=== PATIENT | male | born 1985 | race Caucasian/White ===

== ENCOUNTER 2016-06-15 | Emergency (ER) | payer MEDICAID | END 2016-06-15 16:59 | disposition home or self-care (01) | DX: K02.9 Dental caries, unspecified (principal) ==

== ENCOUNTER 2016-08-15 13:22 | Emergency (ER) | payer MEDICAID ==
[2016-08-15] MEDS ORDERED: PENICILLIN VK 250 MG TABLET PO STA (13:35)
[2016-08-15] MEDS ORDERED: PENICILLIN VK 250 MG TABLET PO ONE (13:39)
== END 2016-08-15 13:43 | disposition home or self-care (01) ==
DX: K02.9 Dental caries, unspecified (principal); F17.200 Nicotine dependence, unspecified, uncomplicated
CPT/HCPCS: 99283; A9270

== ENCOUNTER 2016-11-15 17:00 | Emergency (ER) | payer MEDICAID ==
[2016-11-15 17:11] VITALS: BP 150/86
--- NOTE | 2016-11-15 17:19 | ED Physician Documentation ---
PD HPI HEENT - Stated complaint Stated Complaint: LT UPPER TOOTH ACHE - Chief complaint Chief Complaint: Heent - History obtained from History obtained from: Patient - History of Present Illness Timing - onset: Today Timing - details: Waxing and waning - Additional information Additional information: The patient is a 31-year-old male who presents with toothache in a left upper molar. The aching started this morning and has persisted throughout the day. He denies headache, earache, sore throat, or fever. He has a history of similar symptoms in the past with dental caries. Review of Systems Constitutional: denies: Fever Eyes: denies: Irritation Ears: denies: Ear pain Nose: denies: Congestion Throat: reports: Dental pain / toothache. denies: Sore throat Respiratory: denies: Dyspnea GI: denies: Nausea, Vomiting Skin: denies: Rash Musculoskeletal: denies: Neck pain Neurologic: denies: Headache PD PAST MEDICAL HISTORY - Past Medical History Cardiovascular: None Respiratory: None Neuro: Headache/migraine Endocrine/Autoimmune: None - Past Surgical History Past Surgical History: No - Present Medications Home Medications: Ambulatory Orders Medication Instructions Recorded Confirmed HYDROcod/ACETAM 5/325 [Vicodin 1 - 2 ea PO Q6H PRN #20 tablet 11/15/16 5/325] Penicillin V Potassium 500 mg PO QID #40 tablet 11/15/16 - Allergies Allergies/Adverse Reactions: Allergies Allergy/AdvReac Type Severity Reaction Status Date / Time No Known Drug Allergies Allergy Verified 11/15/16 17:11 - Social History Does the pt smoke?: Yes Smoking Status: Current every day smoker Does the pt drink ETOH?: No Does the pt have substance abuse?: No - Immunizations Immunizations are current?: Yes PD ED PE NORMAL - Vitals Vital signs reviewed: Yes (Initially hypertensive.) - General General: Alert and oriented X 3, Well developed/nourished - HEENT HEENT: Atraumatic, PERRL, EOMI, Ears normal, Pharynx benign, Other (Widespread severe dental caries, with teeth eroded nearly to the gumline. There is tenderness to palpation of the left upper rear most molar. There is no gingival swelling, and no facial swelling.) - Neck Neck: Supple, no meningeal sign, No adenopathy - Cardiac Cardiac: RRR, No murmur - Respiratory Respiratory: No respiratory distress, Clear bilaterally - Derm Derm: No rash - Neuro Neuro: Alert and oriented X 3, Normal speech Results - Vitals Vitals: Oxygen O2 Source Room air PD MEDICAL DECISION MAKING - ED course Complexity details: considered differential, d/w patient ED course: The patient's presentation is significant for dental pain associated with extreme dental caries, with possible apical abscess. There is no clinical evidence of peritonsillar abscess or facial abscess. I discussed with him antibiotic treatment and dental follow-up, as well as potentially worrisome signs or symptoms that should prompt reevaluation in the emergency department. He is being discharged with prescriptions for penicillin and for Vicodin, 20 tablets. Departure - Departure Disposition: Home, Self Care Clinical Impression: Pain due to dental caries Condition: Stable Instructions: ED Tooth Pain Follow-Up: Verna Camp MD [Physician No Access] - Prescriptions: HYDROcod/ACETAM 5/325 [Vicodin 5/325] 1 - 2 ea PO Q6H PRN #20 tablet PRN Reason: Pain Penicillin V Potassium 500 mg PO QID #40 tablet Comments: 1. Take penicillin 4 times daily as prescribed. 2. You can use Vicodin as prescribed if needed for pain. 3. Follow-up with a dentist as soon as possible. Call to schedule appointment. 4. Return to the emergency department if you develop increasing dental pain, facial swelling, or otherwise worsening symptoms. 5. Your blood pressure today in the emergency department was slightly elevated. It is common for people to have high blood pressure when presenting to the emergency department, and it does not indicate that you necessarily have ongoing hypertension or need to be on antihypertensive medication. However it is advisable that you follow up with your primary physician within 2 weeks to have your blood pressure rechecked. Discharge Date/Time: 11/15/16 17:20
== END 2016-11-15 17:20 | disposition home or self-care (01) ==
LOC: ED 17:00
DX: K02.9 Dental caries, unspecified (principal); K08.89 Other specified disorders of teeth and supporting structures; R03.0 Elevated blood-pressure reading, without diagnosis of hypertension
CPT/HCPCS: 99283

== ENCOUNTER 2016-11-25 20:27 | Emergency (ER) | payer MEDICAID ==
[2016-11-25 20:31] VITALS: BP 162/83
--- NOTE | 2016-11-25 21:05 | ED Physician Documentation ---
PD HPI HEENT - Stated complaint Stated Complaint: TOOTH PX - Chief complaint Chief Complaint: Heent - History obtained from History obtained from: Patient - History of Present Illness Timing - duration: Days Timing - details: Gradual onset, Still present, Waxing and waning Location: Tooth (left upper) Associated symptoms: Facial swelling (mild). No: Fever Recently seen: Emergency Dept (Has appt with [facility] dental in 2 weeks) Review of Systems Constitutional: denies: Fever, Chills Throat: denies: Sore throat PD PAST MEDICAL HISTORY - Past Medical History Cardiovascular: None Respiratory: None Neuro: Headache/migraine Endocrine/Autoimmune: None - Past Surgical History Past Surgical History: No - Present Medications Home Medications: Ambulatory Orders Medication Instructions Recorded Confirmed HYDROcod/ACETAM 5/325 [Vicodin 1 - 2 ea PO Q6H PRN #20 tablet 11/15/16 11/25/16 5/325] Clindamycin [Cleocin] 150 mg PO TID #20 capsule 11/25/16 Hydrocodone/Acetaminophen [[place] 1 each PO Q6H PRN #20 tablet 11/25/16 5-325 Tablet] Naproxen 375 mg PO BID #20 tablet 11/25/16 - Allergies Allergies/Adverse Reactions: Allergies Allergy/AdvReac Type Severity Reaction Status Date / Time No Known Drug Allergies Allergy Verified 11/25/16 20:31 - Social History Does the pt smoke?: Yes Smoking Status: Current every day smoker Does the pt drink ETOH?: No Does the pt have substance abuse?: No - Immunizations Immunizations are current?: Yes PD ED PE NORMAL - Vitals Vital signs reviewed: Yes - General General: Alert and oriented X 3, No acute distress, Well developed/nourished - HEENT HEENT: Moist mucous membranes. No: Dentition benign (left upper teeth decayed to gumline, with some gum swelling but no fluctuance. ) - Neck Neck: Supple, no meningeal sign, No adenopathy Results - Vitals Vitals: Vital Signs - 24 hr 11/25/16 20:29 Temperature 36.3 C L Heart Rate 97 Respiratory 18 Rate Blood Pressure 162/83 H O2 Saturation 100 Oxygen O2 Source Room air PD MEDICAL DECISION MAKING - ED course Complexity details: reviewed old records (prior ED visits for the same, but he has had dental extractions on the teeth previously bothered him (right upper and lower). He is getting dental work done at [facility] will do it (he says they will only take out up to 3 at a time). So he is showing good lisa on getting definitive care. ), considered differential, d/w patient Departure - Departure Disposition: 01 Home, Self Care Clinical Impression: Pain due to dental caries Condition: Stable Record reviewed to determine appropriate education?: Yes Instructions: ED Tooth Pain Follow-Up: Verna Camp MD [Primary Care Provider] - Prescriptions: Clindamycin [Cleocin] 150 mg PO TID #20 capsule Naproxen 375 mg PO BID #20 tablet Hydrocodone/Acetaminophen [[place] 5-325 Tablet] 1 each PO Q6H PRN #20 tablet PRN Reason: Pain Comments: Drink lots of fluids. Naproxen twice daily. Clindamycin antibiotic as directed. Add Tylenol or hydrocodone as needed for pain. Follow up [facility] dental in 2 weeks as planned. Discharge Date/Time: 11/25/16 21:21
[2016-11-25] MEDS ORDERED: NAPROXEN 250 MG TABLET PO STA (21:11)
[2016-11-25] MEDS ORDERED: CLINDAMYCIN 150 MG CAPSULE PO STA (21:11)
[2016-11-25] MEDS ORDERED: HYDROcod/ACETAM 5/325 MG TABLET PO STA (21:11)
[2016-11-25] MEDS ORDERED: HYDROcod/ACETAM 5/325 MG TABLET ONE (21:19)
[2016-11-25] MEDS ORDERED: CLINDAMYCIN 150 MG CAPSULE PO ONE (21:19)
[2016-11-25] MEDS ORDERED: NAPROXEN 250 MG TABLET PO ONE (21:19)
== END 2016-11-25 21:21 | disposition home or self-care (01) ==
LOC: ED 20:27
DX: K02.9 Dental caries, unspecified (principal); K08.89 Other specified disorders of teeth and supporting structures; F17.200 Nicotine dependence, unspecified, uncomplicated
CPT/HCPCS: 99283; A9270

== ENCOUNTER 2016-12-06 20:37 | Emergency (ER) | payer MEDICAID ==
[2016-12-06] MEDS ORDERED: PENICILLIN VK 250 MG TABLET PO STA (22:29)
[2016-12-06] MEDS ORDERED: PENICILLIN VK 250 MG TABLET PO ONE (22:32)
--- NOTE | 2016-12-06 22:34 | ED Physician Documentation ---
PD HPI HEENT - Stated complaint Stated Complaint: TOOTH PX - Chief complaint Chief Complaint: General - History obtained from History obtained from: Patient - History of Present Illness Timing - onset: Chronic Timing - duration: Years Timing - details: Gradual onset Pain level max: 8 Pain level now: 8 Location: Tooth (several teeth) Improves: Nothing Worsens: Swalllowing, Temperatures Associated symptoms: No: Fever, Congestion, Rhinorrhea, Trismus, Unable to swallow, Swollen nodes, Facial swelling Similar symptoms before: Diagnosis (dental caries) - Additional information Additional information: has appt on 12/25 with dental Review of Systems Constitutional: denies: Fever, Chills GI: denies: Vomiting, Diarrhea Skin: denies: Rash Musculoskeletal: denies: Neck pain, Back pain Neurologic: denies: Headache PD PAST MEDICAL HISTORY - Past Medical History Past Medical History: Yes Cardiovascular: None Respiratory: None Neuro: Headache/migraine Endocrine/Autoimmune: None GI: None : None HEENT: None Psych: None Musculoskeletal: None Derm: None - Past Surgical History Past Surgical History: No - Present Medications Home Medications: Ambulatory Orders Medication Instructions Recorded Confirmed HYDROcod/ACETAM 5/325 [Vicodin 1 - 2 ea PO Q6H PRN #20 tablet 11/15/16 11/25/16 5/325] Clindamycin [Cleocin] 150 mg PO TID #20 capsule 11/25/16 Hydrocodone/Acetaminophen [[place] 1 each PO Q6H PRN #20 tablet 11/25/16 5-325 Tablet] Naproxen 375 mg PO BID #20 tablet 11/25/16 Hydrocodone/Acetaminophen 1 - 2 each PO Q6H PRN #14 tablet 12/06/16 [Hydrocodon-Acetaminophen 5-325] Penicillin V Potassium 500 mg PO Q6HR #40 tablet 12/06/16 - Allergies Allergies/Adverse Reactions: Allergies Allergy/AdvReac Type Severity Reaction Status Date / Time No Known Drug Allergies Allergy Verified 12/06/16 21:24 - Social History Does the pt smoke?: Yes Smoking Status: Current every day smoker Does the pt drink ETOH?: No Does the pt have substance abuse?: No - Immunizations Immunizations are current?: Yes - POLST Patient has POLST: No PD ED PE NORMAL - Vitals Vital signs reviewed: Yes - General General: Alert and oriented X 3, No acute distress - HEENT HEENT: Other (poor dentition. multiple cavities. no drainable abscess. ) - Neck Neck: Supple, no meningeal sign - Cardiac Cardiac: RRR - Respiratory Respiratory: No respiratory distress, Clear bilaterally - Derm Derm: Warm and dry - Neuro Neuro: Alert and oriented X 3 Results - Vitals Vitals: Vital Signs - 24 hr 12/06/16 12/06/16 21:21 22:41 Temperature 326.6 C H Heart Rate 95 80 Respiratory 17 17 Rate Blood Pressure 149/88 H 135/80 H O2 Saturation 99 97 Oxygen O2 Source Room air PD MEDICAL DECISION MAKING - ED course Complexity details: reviewed old records, considered differential, d/w patient ED course: Patient with very poor dentition. Will place on antibiotics and pain medications for home. Has a dental appointment coming up at the [facility]. Patient counseled regarding signs and symptoms for which I believe and urgent re-evaluation would be necessary. Patient with good understanding of and agreement to plan and is comfortable going home at this time This document was made in part using voice recognition software. While efforts are made to proofread this document, sound alike and grammatical errors may occur. No facial cellulitis, no Samson's angina Departure - Departure Disposition: 01 Home, Self Care Clinical Impression: Dental caries Condition: Good Instructions: ED Cavity Dental Follow-Up: Verna Camp MD [Primary Care Provider] - Within 1 week Prescriptions: Penicillin V Potassium 500 mg PO Q6HR #40 tablet Hydrocodone/Acetaminophen [Hydrocodon-Acetaminophen 5-325] 1 - 2 each PO Q6H PRN #14 tablet PRN Reason: pain Comments: Return if you worsen. Take all antibiotics until gone. Do not drink alcohol or drive while on narcotic pain medicine. Note that many narcotic pain relievers also contain tylenol/acetaminophen. Please ensure that your total dose of acetaminophen from all sources does not exceed 3 grams (3000mg) per day. You may constipated on this medication, take a stool softener such as "Colace" twice a day while you are on it. Also recommend a [id number] laxative such as senna or MiraLAX any day that you do not have a bowel movement. If you received narcotic pain medication in the emergency department, do not drive or operate machinery for the next 24 hours. Discharge Date/Time: 12/06/16 22:42
[2016-12-06 22:42] VITALS: BP 135/80
[2016-12-06] MEDS ORDERED: HYDROcod/ACET 5/325 Prepack 6 PO ONE ×2 (22:48→22:49)
== END 2016-12-06 22:42 | disposition home or self-care (01) ==
LOC: ED 20:37
DX: K02.9 Dental caries, unspecified (principal); F17.200 Nicotine dependence, unspecified, uncomplicated
CPT/HCPCS: 99283; A9270

== ENCOUNTER 2016-12-09 16:45 | Emergency (ER) | payer MEDICAID ==
[2016-12-09 17:11] VITALS: BP 150/89
== END 2016-12-09 19:00 | disposition left against medical advice (07) ==
LOC: ED 16:45
DX: Z53.21 Procedure and treatment not carried out due to patient leaving prior to being seen by health care provider (principal)
CPT/HCPCS: 99281

== ENCOUNTER 2017-01-28 19:39 | Emergency (ER) | payer OTHER, MEDICAID ==
[2017-01-28 19:49] VITALS: BP 159/96
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
[2017-01-28] MEDS ORDERED: HYDROcod/ACET 5/325 Prepack 6 PO STA (20:49)
[2017-01-28] MEDS ORDERED: CYCLOBENZAPRINE 10 MG Prepack 2 PO STA (20:50)
[2017-01-28] MEDS ORDERED: HYDROcod/ACET 5/325 Prepack 6 PO ONE (20:57)
[2017-01-28] MEDS ORDERED: CYCLOBENZAPRINE 10 MG Prepack 2 PO ONE (20:57)
== END 2017-01-28 21:05 | disposition home or self-care (01) ==
LOC: ED 19:39
DX: S39.012A Strain of muscle, fascia and tendon of lower back, initial encounter (principal); V43.92XA Unspecified car occupant injured in collision with other type car in traffic accident, initial encounter
CPT/HCPCS: 99283

== ENCOUNTER 2017-04-27 14:17 | Emergency (ER) | payer MEDICAID ==
[2017-04-27 14:29] VITALS: BP 140/83
--- NOTE | 2017-04-27 14:49 | ED Physician Documentation ---
PD HPI HEENT - Stated complaint Stated Complaint: TOOTH PX - Chief complaint Chief Complaint: Heent - History obtained from History obtained from: Patient - History of Present Illness Timing - onset: How many days ago (4) Timing - duration: Days (4) Timing - details: Gradual onset, Still present Location: Tooth Improves: Medication Worsens: Temperatures Associated symptoms: Facial swelling, Headache Similar symptoms before: Diagnosis (bad teeth) Recently seen: Not recently seen - Additional information Additional information: 32-year-old male has a number of bad teeth on the left upper side that have been bothering him since December of this year. He has been seen at [place] and referred to the [facility] he has been to the [facility] and they will not be able to take him until the beginning of the year. He has multiple carious teeth that are broken at the root and he will need multiple extractions. Today he has pain from a specific tooth and swelling and pain in his face. Review of Systems Constitutional: denies: Fever Eyes: denies: Loss of vision Ears: denies: Ear pain Nose: reports: Congestion Throat: reports: Dental pain / toothache. denies: Sore throat Cardiac: denies: Chest pain / pressure Respiratory: denies: Dyspnea, Cough GI: denies: Vomiting PD PAST MEDICAL HISTORY - Past Medical History Past Medical History: Yes Cardiovascular: None Respiratory: None Neuro: Headache/migraine Endocrine/Autoimmune: None GI: None : None HEENT: None Psych: None Musculoskeletal: None Derm: None - Past Surgical History Past Surgical History: No - Present Medications Home Medications: Ambulatory Orders Medication Instructions Recorded Confirmed Amoxicillin 875 mg PO BID #20 tablet 04/27/17 HYDROcod/ACETAM 5/325 [[place] 5/325] 1 - 2 ea PO Q6H PRN #15 tablet 04/27/17 Omeprazole [PriLOSEC] 1 cap PO DAILY 04/27/17 04/27/17 - Allergies Allergies/Adverse Reactions: Allergies Allergy/AdvReac Type Severity Reaction Status Date / Time No Known Drug Allergies Allergy Verified 04/27/17 14:30 - Social History Does the pt smoke?: Yes Smoking Status: Current every day smoker Does the pt drink ETOH?: No Does the pt have substance abuse?: No - Immunizations Immunizations are current?: Yes - POLST Patient has POLST: No PD ED PE NORMAL - Vitals Vital signs reviewed: Yes (Tachycardic and hypertensive) - General General: Alert and oriented X 3, Well developed/nourished, Other (32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.) - HEENT HEENT: Atraumatic, PERRL, EOMI, Ears normal (The patient's ear canals point up.) , Other (There are multiple carious teeth and multiple teeth broken off at the root on the left upper jaw.) - Neck Neck: Supple, no meningeal sign, No bony TTP - Cardiac Cardiac: RRR, No murmur - Respiratory Respiratory: No respiratory distress, Clear bilaterally - Derm Derm: Normal color, Warm and dry, No rash - Extremities Extremities: No deformity, No edema - Neuro Neuro: No motor deficit, No sensory deficit Eye Opening: Spontaneous Motor: Obeys Commands Verbal: Oriented GCS Score: 15 - Psych Psych: Normal mood Results - Vitals Vitals: Vital Signs - 24 hr 04/27/17 14:26 Temperature 36.5 C Heart Rate 103 H Respiratory 16 Rate Blood Pressure 140/83 H O2 Saturation 100 Oxygen O2 Source Room air PD MEDICAL DECISION MAKING - ED course Complexity details: considered differential, d/w patient ED course: 32-year-old male with multiple bad teeth appears to have a specific tooth bothering him right now and he has had experienced previously with taking antibiotics and having this improved. He will not be able to be seen until May for extractions. We will place him on some amoxicillin. We will provide him with a small amount of pain medication. Departure - Departure Disposition: 01 Home, Self Care Clinical Impression: Pain due to dental caries Instructions: ED Tooth Pain Follow-Up: Verna Camp MD [Primary Care Provider] - Prescriptions: Amoxicillin 875 mg PO BID #20 tablet HYDROcod/ACETAM 5/325 [[place] 5/325] 1 - 2 ea PO Q6H PRN #15 tablet PRN Reason: Pain
== END 2017-04-27 15:05 | disposition home or self-care (01) ==
LOC: ED 14:17
DX: K02.9 Dental caries, unspecified (principal); F17.200 Nicotine dependence, unspecified, uncomplicated
CPT/HCPCS: 99283

== ENCOUNTER 2017-06-15 17:30 | Emergency (ER) | payer MEDICAID ==
[2017-06-15] MEDS ORDERED: cephALEXin 250 MG CAPSULE PO STA (18:53)
[2017-06-15] MEDS ORDERED: SULFAMETH/TRIMETH DS 800/160 MG TABLET PO STA (18:53)
--- NOTE | 2017-06-15 18:55 | ED Physician Documentation ---
History of Present Illness - Stated complaint Stated Complaint: LEFT POINTY FINGER SWELLING - Chief complaint Chief Complaint: Laceration - History obtained from History obtained from: Patient - History of Present Illness Timing: How many days ago (3) Pain level max: 3 Pain level now: 2 Improved by: nothing Worsened by: palpation - Additonal information Additional information: Patient is left handed. L index finger abrasion a few days ago, now swelling, redness to the finger. Td was 8 months ago. Review of Systems Constitutional: denies: Fever, Chills Skin: denies: Rash PD PAST MEDICAL HISTORY - Past Medical History Cardiovascular: None Respiratory: None Neuro: Headache/migraine Endocrine/Autoimmune: None GI: None : None HEENT: None Psych: None Musculoskeletal: None Derm: None - Past Surgical History Past Surgical History: No - Present Medications Home Medications: Ambulatory Orders Medication Instructions Recorded Confirmed Amoxicillin 875 mg PO BID #20 tablet 04/27/17 HYDROcod/ACETAM 5/325 [[place] 5/325] 1 - 2 ea PO Q6H PRN #15 tablet 04/27/17 Omeprazole [PriLOSEC] 1 cap PO DAILY 04/27/17 04/27/17 Cephalexin [Keflex] 500 mg PO Q6H #28 capsule 06/15/17 Sulfamethox/Trimeth 800/160 1 each PO BID #14 tablet 06/15/17 [Bactrim Ds 800/160] - Allergies Allergies/Adverse Reactions: Allergies Allergy/AdvReac Type Severity Reaction Status Date / Time No Known Drug Allergies Allergy Verified 04/27/17 14:30 - Social History Does the pt smoke?: Yes Smoking Status: Current every day smoker Does the pt drink ETOH?: No Does the pt have substance abuse?: No - Immunizations Immunizations are current?: Yes - POLST Patient has POLST: No PD ED PE NORMAL - Vitals Vital signs reviewed: Yes - General General: Alert and oriented X 3, No acute distress - Derm Derm: Warm and dry - Extremities Extremities: Other (L hand - mild swelling and erythema to dorsal aspect of the distal phalanx of the index finger near the DIP joint. mild swelling. no tenderness along the tendons of the palmar aspect. no lymphangitis. ) - Neuro Neuro: Alert and oriented X 3 Results - Vitals Vitals: Vital Signs - 24 hr 06/15/17 06/15/17 17:43 18:56 Temperature 36.5 C 36.5 C Heart Rate 93 85 Respiratory 18 18 Rate Blood Pressure 153/96 H 147/104 H O2 Saturation 96 98 Oxygen O2 Source Room air - Labs Labs: Microbiology 06/15/17 18:45 Wound Culture - Preliminary Abscess PD MEDICAL DECISION MAKING - ED course Complexity details: considered differential, d/w patient ED course: Patient is a 32-year-old gentleman who presents to the emergency department with what appears to be a mild cellulitis to the left index finger. There was a small abscess that was unroofed with a 27-gauge needle, small amount of purulent material obtained and sent for wound culture. Will place on Bactrim and Keflex. No tenosynovitis. No lymphangitic spread. No deep space infection in the hand. Able to flex and extend the digit fully. Patient counseled regarding signs and symptoms for which I believe and urgent re- evaluation would be necessary. Patient with good understanding of and agreement to plan and is comfortable going home at this time This document was made in part using voice recognition software. While efforts are made to proofread this document, sound alike and grammatical errors may occur. Last tetanus shot was 8 months ago Departure - Departure Disposition: 01 Home, Self Care Clinical Impression: Cellulitis Qualifiers: Site of cellulitis: extremity Site of cellulitis of extremity: finger Laterality: left Qualified Code(s): L03.012 - Cellulitis of left finger Condition: Good Instructions: ED Infec Skin Cellulitis Follow-Up: Verna Camp MD [Primary Care Provider] - Within 3 Days (for wound check) Prescriptions: Cephalexin [Keflex] 500 mg PO Q6H #28 capsule Sulfamethox/Trimeth 800/160 [Bactrim Ds 800/160] 1 each PO BID #14 tablet Comments: Take all antibiotics until gone. Return if you worsen. This should start to improve over the next 24 hours. Discharge Date/Time: 06/15/17 19:15
[2017-06-15 18:59] VITALS: BP 147/104
== END 2017-06-15 19:15 | disposition home or self-care (01) ==
LOC: ED 17:30
DX: L03.012 Cellulitis of left finger (principal)
CPT/HCPCS: 87070; 87181; 87205; 99282; 99283; A9270

== ENCOUNTER 2017-08-04 19:42 | Emergency (ER) | payer MEDICAID ==
[2017-08-04] MEDS ORDERED: HYDROcod/ACET 5/325 Prepack 4 PO STA (21:30)
--- NOTE | 2017-08-04 21:32 | ED Physician Documentation ---
PD HPI LOWER EXT INJURY - Stated complaint Stated Complaint: L LEG PAIN - Chief complaint Chief Complaint: Ext Problem - History obtained from History obtained from: Patient - History of Present Illness PD HPI LOW EXT INJURY LOCATION: Left, Lower leg (He was walking on flat ground today and felt a pop in his calf and now has moderate pain when walking and mild pain at rest. No other injuries. No recent antibiotics.) Review of Systems Constitutional: reports: Reviewed and negative Cardiac: reports: Reviewed and negative Respiratory: reports: Reviewed and negative PD PAST MEDICAL HISTORY - Past Medical History Past Medical History: Yes Cardiovascular: None Respiratory: None Neuro: Headache/migraine Endocrine/Autoimmune: None GI: GERD : None HEENT: None Psych: None Musculoskeletal: None Derm: None - Past Surgical History Past Surgical History: No - Present Medications Home Medications: Ambulatory Orders Medication Instructions Recorded Confirmed Omeprazole [PriLOSEC] 1 cap PO DAILY 04/27/17 04/27/17 HYDROcod/ACETAM 5/325 [[place] 5/325] 1 - 2 ea PO Q6H PRN #7 tablet 08/04/17 Ibuprofen [Motrin] 800 mg PO Q8H PRN #30 tablet 08/04/17 - Allergies Allergies/Adverse Reactions: Allergies Allergy/AdvReac Type Severity Reaction Status Date / Time No Known Drug Allergies Allergy Verified 08/04/17 19:55 - Social History Does the pt smoke?: Yes Smoking Status: Current every day smoker Does the pt drink ETOH?: No Does the pt have substance abuse?: No - Immunizations Immunizations are current?: Yes - POLST Patient has POLST: No PD ED PE NORMAL - Vitals Vital signs reviewed: Yes - General General: Alert and oriented X 3, No acute distress - Extremities Extremities: Other (Left calf is mildly tender but not tense. He has pain with Achilles function but Achilles function is normal.) - Neuro Neuro: Alert and oriented X 3, Normal speech Results - Vitals Vitals: Vital Signs - 24 hr 08/04/17 19:53 Temperature 36.4 C L Heart Rate 97 Respiratory 18 Rate Blood Pressure 145/91 H O2 Saturation 100 Oxygen O2 Source Room air PD MEDICAL DECISION MAKING - ED course ED course: He has a partial calf rupture clinically. This history is inconsistent with DVT. There is no evidence of compartment syndrome. Departure - Departure Disposition: 01 Home, Self Care Clinical Impression: Strain of calf muscle Qualifiers: Encounter type: initial encounter Laterality: left Qualified Code(s): S86.812A - Strain of other muscle(s) and tendon(s) at lower leg level, left leg, initial encounter Condition: Good Record reviewed to determine appropriate education?: Yes Instructions: ED Strain Muscle Ext Prescriptions: HYDROcod/ACETAM 5/325 [[place] 5/325] 1 - 2 ea PO Q6H PRN #7 tablet PRN Reason: Pain Ibuprofen [Motrin] 800 mg PO Q8H PRN #30 tablet PRN Reason: PAIN &/OR FEVER Comments: Call your doctor to arrange a follow-up appointment, make the next available appointment. In the interim, return anytime if worse or if new symptoms develop. Do not drink or drive while taking narcotic pain medication. Note that many narcotic pain relievers also contain Tylenol/acetaminophen. Please ensure that your total dose of acetaminophen from all sources does not exceed 3 g (3000 mg) per day. You may get constipated while on this medication. Take a stool softener such as Colace twice a day while you are on it. Also add an [id number] laxative such as senna or MiraLAX on any day that you do not have a bowel movement. If you received a narcotic pain medication or sedative while in the emergency department, do not drive for the next 24 hours. Your blood pressure was elevated today on check into the emergency department. This does not mean that you have hypertension, it is a common phenomenon to come to the emergency department and have elevated blood pressure. I recommend that you see your primary care physician within the week to have it rechecked when you are feeling better. Forms: Activity restrictions
[2017-08-04 21:49] VITALS: BP 141/89
== END 2017-08-04 21:47 | disposition home or self-care (01) ==
LOC: ED 19:42
DX: S86.812A Strain of other muscle(s) and tendon(s) at lower leg level, left leg, initial encounter (principal); X58.XXXA Exposure to other specified factors, initial encounter; Y93.01 Activity, walking, marching and hiking; F17.200 Nicotine dependence, unspecified, uncomplicated
CPT/HCPCS: 99283

== ENCOUNTER 2017-11-06 17:03 | Emergency (ER) | payer MEDICAID ==
[2017-11-06 17:10] VITALS: BP 133/89
[2017-11-06] MEDS ORDERED: PENICILLIN VK 250 MG TABLET PO STA (17:15)
[2017-11-06] MEDS ORDERED: IBUPROFEN 800 MG TABLET PO STA (17:16)
--- NOTE | 2017-11-06 17:19 | ED Physician Documentation ---
PD HPI HEENT - Stated complaint Stated Complaint: TOOTH PX - Chief complaint Chief Complaint: General - History obtained from History obtained from: Patient - History of Present Illness Timing - onset: Today Timing - details: Still present Associated symptoms: No: Fever, Facial swelling, Headache - Additional information Additional information: The patient is a 32-year-old male with a history of dental caries, who presents with toothache of his right upper incisor. The pain started today. He denies fever or facial swelling. He has history of similar pain intermittently in the past. He denies the use of methamphetamine. Review of Systems Constitutional: denies: Fever Eyes: denies: Irritation Ears: denies: Ear pain Nose: denies: Congestion Throat: reports: Dental pain / toothache. denies: Sore throat Respiratory: denies: Dyspnea GI: denies: Nausea, Vomiting Skin: denies: Rash Musculoskeletal: denies: Neck pain Neurologic: denies: Headache PD PAST MEDICAL HISTORY - Past Medical History Cardiovascular: None Respiratory: None Endocrine/Autoimmune: None GI: GERD : None HEENT: None Psych: None Musculoskeletal: None Derm: None - Past Surgical History Past Surgical History: No - Present Medications Home Medications: Ambulatory Orders Medication Instructions Recorded Confirmed Omeprazole [PriLOSEC] 1 cap PO DAILY 04/27/17 04/27/17 Ibuprofen [Motrin] 800 mg PO Q8H PRN #30 tablet 08/04/17 HYDROcod/ACETAM 5/325 [[place] 5/325] 1 - 2 ea PO Q6H PRN #20 tablet 11/06/17 Penicillin V Potassium 500 mg PO QID #40 tablet 11/06/17 - Allergies Allergies/Adverse Reactions: Allergies Allergy/AdvReac Type Severity Reaction Status Date / Time No Known Drug Allergies Allergy Verified 08/04/17 19:55 - Social History Does the pt smoke?: Yes Smoking Status: Current every day smoker Does the pt drink ETOH?: No Does the pt have substance abuse?: No - Immunizations Immunizations are current?: Yes - POLST Patient has POLST: No PD ED PE NORMAL - Vitals Vital signs reviewed: Yes (Borderline hypertension.) - General General: Alert and oriented X 3, Well developed/nourished - HEENT HEENT: Atraumatic, EOMI, Ears normal, Pharynx benign, Other (There is widespread dental decay, with many teeth missing. The right upper medial incisor is decayed into the pulp, and is tender to palpation. There is no associated gingival or facial swelling.) - Neck Neck: Supple, no meningeal sign, No adenopathy - Cardiac Cardiac: RRR - Respiratory Respiratory: No respiratory distress, Clear bilaterally - Derm Derm: No rash - Neuro Neuro: Alert and oriented X 3, Normal speech Results - Vitals Vitals: Oxygen O2 Source Room air PD MEDICAL DECISION MAKING - ED course Complexity details: considered differential, d/w patient ED course: The patient's presentation is significant for dental pain due to extensive dental caries in the right upper incisor. There is no clinical evidence of a drainable abscess. Treatment in the emergency department included administration of penicillin and ibuprofen. He is being discharged with prescriptions for penicillin and for Vicodin, 20 tablets. I discussed with him the importance of dental follow-up, as well as potentially worrisome signs or symptoms that should prompt reevaluation in the emergency department. - Sepsis Event Vital Signs: Oxygen O2 Source Room air Departure - Departure Disposition: 01 Home, Self Care Clinical Impression: Pain due to dental caries Condition: Stable Instructions: ED Tooth Pain Follow-Up: Verna Camp MD [Primary Care Provider] - Prescriptions: HYDROcod/ACETAM 5/325 [[place] 5/325] 1 - 2 ea PO Q6H PRN #20 tablet PRN Reason: Pain Penicillin V Potassium 500 mg PO QID #40 tablet Comments: Take penicillin 4 times daily as prescribed. He can use ibuprofen, up to 800 mg 3 times daily for its anti-inflammatory effect. You can use Vicodin as prescribed if needed for pain. Follow up with a dentist as soon as possible. Call to schedule appointment. Return to the emergency department if you develop increasing pain or facial swelling, or otherwise worsening symptoms. Discharge Date/Time: 11/06/17 17:38
== END 2017-11-06 17:38 | disposition home or self-care (01) ==
LOC: ED 17:03
DX: K02.9 Dental caries, unspecified (principal); K08.89 Other specified disorders of teeth and supporting structures; K21.9 Gastro-esophageal reflux disease without esophagitis; F17.200 Nicotine dependence, unspecified, uncomplicated
CPT/HCPCS: 99283; A9270

== ENCOUNTER 2017-12-27 19:59 | Emergency (ER) | payer MEDICAID ==
[2017-12-27 20:05] VITALS: BP 142/78
[2017-12-27] MEDS ORDERED: CLINDAMYCIN 150 MG CAPSULE PO STA (20:20)
[2017-12-27] MEDS ORDERED: HYDROcod/ACET 5/325 Prepack 4 PO STA (20:20)
--- NOTE | 2017-12-27 20:22 | ED Physician Documentation ---
PD HPI HEENT - Stated complaint Stated Complaint: TOOTHACHE - Chief complaint Chief Complaint: Heent - History obtained from History obtained from: Patient - History of Present Illness Timing - onset: Other (He has worsening diffuse dental pain, the worst one is a right maxillary incisor. He has been running fevers and does have an appointment with the dentist.) Review of Systems Constitutional: denies: Fever, Chills Nose: denies: Rhinorrhea / runny nose, Congestion Throat: reports: Dental pain / toothache. denies: Sore throat PD PAST MEDICAL HISTORY - Past Medical History Past Medical History: Yes Cardiovascular: None Respiratory: None Endocrine/Autoimmune: None GI: GERD : None HEENT: None Psych: None Musculoskeletal: None Derm: None - Past Surgical History Past Surgical History: No - Present Medications Home Medications: Ambulatory Orders Medication Instructions Recorded Confirmed Omeprazole [PriLOSEC] 1 cap PO DAILY 04/27/17 04/27/17 Clindamycin [Cleocin] 300 mg PO Q6H 10 Days capsule 12/27/17 HYDROcod/ACETAM 5/325 [[place] 5/325] 1 - 2 ea PO Q6H PRN #10 tablet 12/27/17 - Allergies Allergies/Adverse Reactions: Allergies Allergy/AdvReac Type Severity Reaction Status Date / Time No Known Drug Allergies Allergy Verified 12/27/17 20:04 - Social History Does the pt smoke?: Yes Smoking Status: Current every day smoker Does the pt drink ETOH?: No Does the pt have substance abuse?: No - Immunizations Immunizations are current?: Yes - POLST Patient has POLST: No PD ED PE NORMAL - Vitals Vital signs reviewed: Yes - General General: Alert and oriented X 3, No acute distress - HEENT HEENT: Other (He has generally terrible dentition, most of his teeth are rotted down to the gumline. There is no evidence of a severe active infection i.e. there is no trismus, sublingual edema, facial swelling or gingival swelling.) - Abdomen Abdomen: Non tender - Neuro Neuro: Alert and oriented X 3, Normal speech Results - Vitals Vitals: Vital Signs - 24 hr 12/27/17 20:01 Temperature 36.6 C Heart Rate 110 H Respiratory 18 Rate Blood Pressure 142/78 H O2 Saturation 97 Oxygen O2 Source Room air PD MEDICAL DECISION MAKING - Sepsis Event Vital Signs: Vital Signs - 24 hr 12/27/17 20:01 Temperature 36.6 C Heart Rate 110 H Respiratory 18 Rate Blood Pressure 142/78 H O2 Saturation 97 Oxygen O2 Source Room air Departure - Departure Disposition: 01 Home, Self Care Clinical Impression: Dental caries Condition: Good Record reviewed to determine appropriate education?: Yes Instructions: ED Tooth Pain Prescriptions: Clindamycin [Cleocin] 300 mg PO Q6H 10 Days capsule HYDROcod/ACETAM 5/325 [[place] 5/325] 1 - 2 ea PO Q6H PRN #10 tablet PRN Reason: Pain Comments: It is very important that you follow-up with a dentist. When it comes to dental problems like yours, the emergency department can only offer a short- term solution to your long-term problem. A couple of low cost options for dental care include: [facility] in [place], calls [phone] for an appointment Or [facility] in [place], call [phone] for an appointment. Your blood pressure was elevated today on check into the emergency department. This does not mean that you have hypertension, it is a common phenomenon to come to the emergency department and have elevated blood pressure. I recommend that you see your primary care physician within the week to have it rechecked when you are feeling better.
== END 2017-12-27 20:28 | disposition home or self-care (01) ==
LOC: ED 19:59
DX: K02.9 Dental caries, unspecified (principal); F17.200 Nicotine dependence, unspecified, uncomplicated; R03.0 Elevated blood-pressure reading, without diagnosis of hypertension
CPT/HCPCS: 99283; A9270

== ENCOUNTER 2018-02-11 18:08 | Emergency (ER) | payer MEDICAID ==
[2018-02-11 18:15] VITALS: BP 148/89
[2018-02-11] MEDS ORDERED: HYDROcod/ACETAM 5/325 MG TABLET PO STA (18:25)
[2018-02-11] MEDS ORDERED: PENICILLIN VK 250 MG TABLET PO STA (18:25)
--- NOTE | 2018-02-11 18:27 | ED Physician Documentation ---
History of Present Illness - Stated complaint Stated Complaint: TOOTH PX - Chief complaint Chief Complaint: Heent - History obtained from History obtained from: Patient - History of Present Illness Timing: Today Pain level max: 8 Pain level now: 8 Improved by: nothing Worsened by: eating - Additonal information Additional information: Patient is a 33-year-old male with chronic dental disease who started having increasing upper left-sided dental pain today at 3:30 in the morning. He has a referral for an oral surgeon in [place] but there is no appointment scheduled as of yet. Denies any fevers. No facial swelling. Has not been on recent antibiotics since his last visit here last month Review of Systems Constitutional: denies: Fever, Chills Respiratory: denies: Cough GI: denies: Vomiting PD PAST MEDICAL HISTORY - Past Medical History Cardiovascular: None Respiratory: None Endocrine/Autoimmune: None GI: GERD : None HEENT: None Psych: None Musculoskeletal: None Derm: None - Past Surgical History Past Surgical History: No - Present Medications Home Medications: Ambulatory Orders Medication Instructions Recorded Confirmed Omeprazole [PriLOSEC] 1 cap PO DAILY 04/27/17 04/27/17 Clindamycin [Cleocin] 300 mg PO Q6H 10 Days capsule 12/27/17 HYDROcod/ACETAM 5/325 [[place] 5/325] 1 - 2 ea PO Q6H PRN #10 tablet 12/27/17 Hydrocodone/Acetaminophen 1 - 2 each PO Q6H PRN #14 tablet 02/11/18 [Hydrocodon-Acetaminophen 5-325] Penicillin V Potassium 500 mg PO Q6HR #40 tablet 02/11/18 - Allergies Allergies/Adverse Reactions: Allergies Allergy/AdvReac Type Severity Reaction Status Date / Time No Known Drug Allergies Allergy Verified 02/11/18 18:15 - Social History Does the pt smoke?: Yes Smoking Status: Current every day smoker Does the pt drink ETOH?: No Does the pt have substance abuse?: No - Immunizations Immunizations are current?: Yes - POLST Patient has POLST: No PD ED PE NORMAL - Vitals Vital signs reviewed: Yes - General General: Alert and oriented X 3, No acute distress - HEENT HEENT: Moist mucous membranes, Other (Diffuse dental caries with multiple teeth that are broken and visibly rotting. No drainable abscess. No facial cellulitis. No Samson's angina. Normal phonation. No trismus) - Neck Neck: Supple, no meningeal sign, No adenopathy - Cardiac Cardiac: RRR - Respiratory Respiratory: No respiratory distress, Clear bilaterally - Derm Derm: Warm and dry - Neuro Neuro: Alert and oriented X 3 Results - Vitals Vitals: Vital Signs - 24 hr 02/11/18 18:13 Temperature 35.6 C L Heart Rate 101 H Respiratory 15 Rate Blood Pressure 148/89 H O2 Saturation 100 Oxygen O2 Source Room air PD MEDICAL DECISION MAKING - ED course Complexity details: considered differential, d/w patient ED course: Patient is a 33-year-old male with a long-standing history of dental disease being referred to an oral surgeon for tooth extraction. Will place on penicillin and prescribe a small amount of pain medication for home. We will have him follow-up with his doctor for further care. No evidence of abscess or Samson's angina. Patient counseled regarding signs and symptoms for which I believe and urgent re-evaluation would be necessary. Patient with good understanding of and agreement to plan and is comfortable going home at this time This document was made in part using voice recognition software. While efforts are made to proofread this document, sound alike and grammatical errors may occur. - Sepsis Event Vital Signs: Vital Signs - 24 hr 02/11/18 18:13 Temperature 35.6 C L Heart Rate 101 H Respiratory 15 Rate Blood Pressure 148/89 H O2 Saturation 100 Oxygen O2 Source Room air Departure - Departure Disposition: 01 Home, Self Care Clinical Impression: Dental caries, Pain due to dental caries Condition: Good Instructions: ED Tooth Pain Follow-Up: your,doctor in 1 week [Other] Prescriptions: Penicillin V Potassium 500 mg PO Q6HR #40 tablet Hydrocodone/Acetaminophen [Hydrocodon-Acetaminophen 5-325] 1 - 2 each PO Q6H PRN #14 tablet PRN Reason: pain Comments: Take all antibiotics until gone. Return if you worsen. Make sure to follow-up closely with your dentist and oral surgeon. Do not drink alcohol or drive while on narcotic pain medicine. Note that many narcotic pain relievers also contain tylenol/acetaminophen. Please ensure that your total dose of acetaminophen from all sources does not exceed 3 grams (3000mg) per day. You may constipated on this medication, take a stool softener such as "Colace" twice a day while you are on it. Also recommend a cemv-lwx-oybjvrx laxative such as senna or MiraLAX any day that you do not have a bowel movement. If you received narcotic pain medication in the emergency department, do not drive or operate machinery for the next 24 hours.
== END 2018-02-11 18:43 | disposition home or self-care (01) ==
LOC: ED 18:08
DX: K02.9 Dental caries, unspecified (principal); K08.89 Other specified disorders of teeth and supporting structures; F17.200 Nicotine dependence, unspecified, uncomplicated
CPT/HCPCS: 99283; A9270

== ENCOUNTER 2018-03-10 17:28 | Emergency (ER) | payer MEDICAID ==
[2018-03-10 17:32] VITALS: BP 154/93
--- NOTE | 2018-03-10 17:41 | ED Physician Documentation ---
PD HPI BACK INJURY - Stated complaint Stated Complaint: BILAT HIP/LOW BACK PX - History obtained from History obtained from: Patient - History of Present Illness Location: Lower (Working around the house yesterday with a lot of bending over and lifting and cutting firewood in grad gradual onset bilateral low back pain last night that radiates a little bit into the left buttock but no further. No weakness, numbness, tingling, saddle anesthesia, fevers.) Review of Systems Constitutional: denies: Fever, Chills GI: denies: Abdominal Pain, Abdominal Swelling, Nausea, Vomiting Musculoskeletal: denies: Neck pain PD PAST MEDICAL HISTORY - Past Medical History Cardiovascular: None Respiratory: None Endocrine/Autoimmune: None GI: GERD : None HEENT: None Psych: None Musculoskeletal: None Derm: None - Past Surgical History Past Surgical History: No - Present Medications Home Medications: Ambulatory Orders Medication Instructions Recorded Confirmed Omeprazole [PriLOSEC] 1 cap PO DAILY 04/27/17 04/27/17 Cyclobenzaprine [Flexeril] 10 mg PO TID PRN #14 tablet 03/10/18 Hydrocodone/Acetaminophen 1 - 2 each PO Q6H PRN #10 tablet 03/10/18 [Hydrocodon-Acetaminophen 5-325] Ibuprofen [Motrin] 800 mg PO Q8H PRN #30 tablet 03/10/18 - Allergies Allergies/Adverse Reactions: Allergies Allergy/AdvReac Type Severity Reaction Status Date / Time No Known Drug Allergies Allergy Verified 03/10/18 17:32 - Social History Does the pt smoke?: Yes Smoking Status: Current every day smoker Does the pt drink ETOH?: No Does the pt have substance abuse?: No - Immunizations Immunizations are current?: Yes - POLST Patient has POLST: No PD ED PE NORMAL - Vitals Vital signs reviewed: Yes - General General: Alert and oriented X 3, No acute distress (But winces with motion especially lifting of the left leg or twisting) - Abdomen Abdomen: Normal bowel sounds, Soft, Non tender - Back Back: No spinal TTP, Other (Bilateral paralumbar muscular tenderness) - Extremities Extremities: Other (The patient has equal and normal Achilles and patellar reflexes bilaterally. Normal sensation in all areas of the legs. Patient denies saddle anesthesia. Normal strength in flexion-extension at the ankles, knees, and flexion of the hips.) - Neuro Neuro: Alert and oriented X 3, Normal speech Results - Vitals Vitals: Vital Signs - 24 hr 03/10/18 17:30 Temperature 36.8 C Heart Rate 102 H Respiratory 18 Rate Blood Pressure 154/93 H O2 Saturation 98 Oxygen O2 Source Room air PD MEDICAL DECISION MAKING - ED course ED course: This patient has seemingly uncomplicated musculoskeletal back pain. The patient has no "red flags." Specifically denies IV drug use, fevers, incontinence, saddle anesthesia. Spinal epidural abscess was considered, given that the patient has no fever, is not diabetic, has no spinal tenderness, does not use IV drugs, and has no bilateral neurologic symptoms, the diagnosis of spinal epidural abscess is considered exceedingly unlikely. The [place] prescription monitoring program was queried with regard to this patient. No concerning findings were found. Departure - Departure Disposition: 01 Home, Self Care Clinical Impression: Back muscle spasm Condition: Good Record reviewed to determine appropriate education?: Yes Instructions: ED Low Back Pain Injury Prescriptions: Cyclobenzaprine [Flexeril] 10 mg PO TID PRN #14 tablet PRN Reason: Spasms Hydrocodone/Acetaminophen [Hydrocodon-Acetaminophen 5-325] 1 - 2 each PO Q6H PRN #10 tablet PRN Reason: pain Ibuprofen [Motrin] 800 mg PO Q8H PRN #30 tablet PRN Reason: PAIN &/OR FEVER Comments: Call your doctor to arrange a follow-up appointment, make the next available appointment. In the interim, return anytime if worse or if new symptoms develop. Your blood pressure was elevated today on check into the emergency department. This does not mean that you have hypertension, it is a common phenomenon to come to the emergency department and have elevated blood pressure. I recommend that you see your primary care physician within the week to have it rechecked when you are feeling better. Do not drink or drive while taking narcotic pain medication. Note that many narcotic pain relievers also contain Tylenol/acetaminophen. Please ensure that your total dose of acetaminophen from all sources does not exceed 3 g (3000 mg) per day. You may get constipated while on this medication. Take a stool softener such as Colace twice a day while you are on it. Also add an rrzw-vyf-brfpiqi laxative such as senna or MiraLAX on any day that you do not have a bowel movement. If you received a narcotic pain medication or sedative while in the emergency department, do not drive for the next 24 hours. Forms: Activity restrictions
== END 2018-03-10 17:45 | disposition home or self-care (01) ==
LOC: ED 17:28
DX: M62.830 Muscle spasm of back (principal); R03.0 Elevated blood-pressure reading, without diagnosis of hypertension; F17.200 Nicotine dependence, unspecified, uncomplicated
CPT/HCPCS: 99283

== ENCOUNTER 2018-05-07 15:01 | Emergency (ER) | payer MEDICAID ==
[2018-05-07 15:13] VITALS: BP 138/83
[2018-05-07] MEDS ORDERED: CLINDAMYCIN 150 MG CAPSULE PO STA (15:20)
[2018-05-07] MEDS ORDERED: HYDROcod/ACETAM 5/325 MG TABLET PO STA (15:20)
--- NOTE | 2018-05-07 15:22 | ED Physician Documentation ---
PD HPI HEENT - Stated complaint Stated Complaint: TOOTH PX - Chief complaint Chief Complaint: Heent - History obtained from History obtained from: Patient - History of Present Illness Timing - onset: Yesterday (He has pain from a right mandibular canine. He is been seeing a dentist and they are slowly working all of his bad teeth. Note made that he has been here several times for dental pain and has had greater than 3 prescriptions for narcotics so far this year. No fevers or facial swelling or trismus.) Review of Systems Constitutional: denies: Fever, Chills Nose: denies: Rhinorrhea / runny nose, Congestion Throat: reports: Dental pain / toothache. denies: Sore throat PD PAST MEDICAL HISTORY - Past Medical History Cardiovascular: None Respiratory: None Endocrine/Autoimmune: None GI: GERD : None HEENT: None Psych: None Musculoskeletal: None Derm: None - Past Surgical History Past Surgical History: No - Present Medications Home Medications: Ambulatory Orders Medication Instructions Recorded Confirmed Omeprazole [PriLOSEC] 1 cap PO DAILY 04/27/17 04/27/17 Ibuprofen [Motrin] 800 mg PO Q8H PRN #30 tablet 03/10/18 Clindamycin HCl [Clindamycin 300MG 300 mg PO Q6H #40 capsule 05/07/18 CAP] Ibuprofen [Motrin] 800 mg PO Q8H PRN #30 tablet 05/07/18 - Allergies Allergies/Adverse Reactions: Allergies Allergy/AdvReac Type Severity Reaction Status Date / Time No Known Drug Allergies Allergy Verified 05/07/18 15:13 - Social History Does the pt smoke?: Yes Smoking Status: Current every day smoker Does the pt drink ETOH?: No Does the pt have substance abuse?: No - Immunizations Immunizations are current?: Yes - POLST Patient has POLST: No PD ED PE NORMAL - Vitals Vital signs reviewed: Yes - General General: Alert and oriented X 3, No acute distress - HEENT HEENT: Other (Cece poor dentition, large gingival cavities from the right mandibular canines which is where he points at the site of pain. No palpable abscess or sublingual edema or trismus.) - Neck Neck: Supple, no meningeal sign, No bony TTP - Neuro Neuro: Alert and oriented X 3, Normal speech Results - Vitals Vitals: Vital Signs - 24 hr 05/07/18 15:12 Temperature 36.6 C Heart Rate 108 H Respiratory 20 Rate Blood Pressure 138/83 H O2 Saturation 94 Oxygen O2 Source Room air Departure - Departure Disposition: 01 Home, Self Care Clinical Impression: Pain due to dental caries Condition: Good Record reviewed to determine appropriate education?: Yes Instructions: ED Tooth Pain Prescriptions: Clindamycin HCl [Clindamycin 300MG CAP] 300 mg PO Q6H #40 capsule Ibuprofen [Motrin] 800 mg PO Q8H PRN #30 tablet PRN Reason: PAIN &/OR FEVER Comments: Follow up with your dentist as soon as possible. Return for new or worsening symptoms. Your blood pressure was elevated today on check into the emergency department. This does not mean that you have hypertension, it is a common phenomenon to come to the emergency department and have elevated blood pressure. I recommend that you see your primary care physician within the week to have it rechecked when you are feeling better. Do not drink or drive while taking narcotic pain medication. Note that many narcotic pain relievers also contain Tylenol/acetaminophen. Please ensure that your total dose of acetaminophen from all sources does not exceed 3 g (3000 mg) per day. You may get constipated while on this medication. Take a stool softener such as Colace twice a day while you are on it. Also add an [id number] laxative such as senna or MiraLAX on any day that you do not have a bowel movement. If you received a narcotic pain medication or sedative while in the emergency department, do not drive for the next 24 hours.
== END 2018-05-07 15:33 | disposition home or self-care (01) ==
LOC: ED 15:01
DX: K02.9 Dental caries, unspecified (principal); R03.0 Elevated blood-pressure reading, without diagnosis of hypertension; F17.200 Nicotine dependence, unspecified, uncomplicated
CPT/HCPCS: 99283

== ENCOUNTER 2018-05-18 15:55 | Emergency (ER) | payer MEDICAID ==
[2018-05-18 16:09] VITALS: BP 155/83
--- NOTE | 2018-05-18 16:31 | ED Physician Documentation ---
PD HPI UPPER EXT INJURY - Stated complaint Stated Complaint: L PINKY INJ - Chief complaint Chief Complaint: Trauma Ext - History obtained from History obtained from: Patient - History of Present Illness Location: Left (Left handed gentleman caught his pinky of the left hand in a car door at home just prior to arrival. Pain is mild and he declines pain medications.) Review of Systems Constitutional: denies: Fever, Chills Cardiac: reports: Reviewed and negative Respiratory: reports: Reviewed and negative PD PAST MEDICAL HISTORY - Past Medical History Cardiovascular: None Respiratory: None Endocrine/Autoimmune: None GI: GERD : None HEENT: None Psych: None Musculoskeletal: None Derm: None - Past Surgical History Past Surgical History: No - Present Medications Home Medications: Ambulatory Orders Medication Instructions Recorded Confirmed Omeprazole [PriLOSEC] 1 cap PO DAILY 04/27/17 04/27/17 Ibuprofen [Motrin] 800 mg PO Q8H PRN #30 tablet 05/07/18 - Allergies Allergies/Adverse Reactions: Allergies Allergy/AdvReac Type Severity Reaction Status Date / Time No Known Drug Allergies Allergy Verified 05/18/18 16:09 - Social History Does the pt smoke?: Yes Smoking Status: Current every day smoker Does the pt drink ETOH?: No Does the pt have substance abuse?: No - Immunizations Immunizations are current?: Yes - POLST Patient has POLST: No PD ED PE NORMAL - Vitals Vital signs reviewed: Yes - General General: Alert and oriented X 3, No acute distress - Extremities Extremities: Other (Tender at the DIP of the left hand pinky without limited range of motion or neurovascular compromise.) - Neuro Neuro: Alert and oriented X 3, Normal speech Results - Vitals Vitals: Vital Signs - 24 hr 05/18/18 05/18/18 16:05 16:32 Temperature 36.4 C L Heart Rate 111 H 110 H Respiratory 16 Rate Blood Pressure 155/83 H O2 Saturation 97 Oxygen O2 Source Room air - Rads (name of study) L 5th finger Radiology: EMP read contemporaneously (Nondisplaced corner fracture of the distal phalanx) Procedures - Splint (location) L 5th finger Splint applied by: Physician Type of splint: Metal foam finger splint Other: Patient tolerated well, No complications, Neurovascular intact Departure - Departure Disposition: 01 Home, Self Care Clinical Impression: Finger fracture, left Condition: Good Record reviewed to determine appropriate education?: Yes Instructions: ED Fx Finger Closed Follow-Up: [facility] [Provider Group] - Within 1 week Comments: Your blood pressure was elevated today on check into the emergency department. This does not mean that you have hypertension, it is a common phenomenon to come to the emergency department and have elevated blood pressure. I recommend that you see your primary care physician within the week to have it rechecked when you are feeling better. Discharge Date/Time: 05/18/18 16:32
--- NOTE | 2018-05-18 16:49 | XRAY Report ---
Reason: Trauma Procedure Date: 05/18/2018 Accession Number: [id number] / [id number] Procedure: XR - Finger(s) LT CPT Code: FULL RESULT: EXAM: LEFT FIFTH DIGIT RADIOGRAPHY EXAM DATE: 05/18/2018 04:21 PM. CLINICAL HISTORY: Slammed in door. Trauma. COMPARISON: None. TECHNIQUE: 3 views. FINDINGS: Bones: Small nondisplaced corner fracture, radial side, base of distal phalanx. Joints: Normal. No subluxations. Soft Tissues: Associated soft tissue swelling. IMPRESSION: Nondisplaced small corner fracture, base of distal phalanx. RADIA
== END 2018-05-18 16:32 | disposition home or self-care (01) ==
LOC: ED 15:55
DX: S62.667A Nondisplaced fracture of distal phalanx of left little finger, initial encounter for closed fracture (principal); W23.0XXA Caught, crushed, jammed, or pinched between moving objects, initial encounter; Y92.009 Unspecified place in unspecified non-institutional (private) residence as the place of occurrence of the external cause; R03.0 Elevated blood-pressure reading, without diagnosis of hypertension; F17.200 Nicotine dependence, unspecified, uncomplicated
CPT/HCPCS: 29130; 73140; 99283

== ENCOUNTER 2018-12-04 19:45 | Emergency (ER) | payer MEDICAID ==
[2018-12-04] MEDS ORDERED: HYDROcod/ACET 5/325 Prepack 4 PO STA (20:44)
--- NOTE | 2018-12-04 21:01 | ED Physician Documentation ---
PD HPI HEENT - Stated complaint Stated Complaint: TOOTHACHE - Chief complaint Chief Complaint: Heent - History obtained from History obtained from: Patient - History of Present Illness Timing - onset: How many days ago (2) Timing - duration: Days (2) Timing - details: Gradual onset, Still present Location: Tooth Improves: Medication Worsens: Everything Associated symptoms: No: Fever Similar symptoms before: Diagnosis (dental abscess) Recently seen: Not recently seen - Additional information Additional information: 33-year-old male with extensive dental decay has had a lot of teeth removed and he does have one tooth on the bottom right that is bothering him especially right at the gumline on a tooth that is broken and carious. Review of Systems Constitutional: denies: Fever Eyes: denies: Decreased vision Ears: denies: Ear pain Nose: denies: Congestion Throat: reports: Dental pain / toothache Respiratory: denies: Cough GI: denies: Vomiting PD PAST MEDICAL HISTORY - Past Medical History Cardiovascular: None Respiratory: None Endocrine/Autoimmune: None GI: GERD : None HEENT: None Psych: None Musculoskeletal: None Derm: None - Past Surgical History Past Surgical History: No - Present Medications Home Medications: Ambulatory Orders Medication Instructions Recorded Confirmed Omeprazole [PriLOSEC] 1 cap PO DAILY 04/27/17 04/27/17 Ibuprofen [Motrin] 800 mg PO Q8H PRN #30 tablet 05/07/18 Amoxicillin 875 mg PO BID #14 tablet 12/04/18 Hydrocodone/Acetaminophen 1 - 2 each PO Q6H PRN #14 tablet 12/04/18 [Hydrocodon-Acetaminophen 5-325] - Allergies Allergies/Adverse Reactions: Allergies Allergy/AdvReac Type Severity Reaction Status Date / Time No Known Drug Allergies Allergy Verified 12/04/18 19:52 - Social History Does the pt smoke?: Yes Smoking Status: Current every day smoker Does the pt drink ETOH?: No Does the pt have substance abuse?: No - Immunizations Immunizations are current?: Yes - POLST Patient has POLST: No PD ED PE NORMAL - Vitals Vital signs reviewed: Yes (hypertnsive ) - General General: Alert and oriented X 3, Well developed/nourished, Other (Appears to be in pain with 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 There is no drainage. ) - Respiratory Respiratory: No respiratory distress - Derm Derm: Normal color, Warm and dry, No rash - Neuro Neuro: Alert and oriented X 3, button puncher 2-12 intact, No motor deficit, No sensory deficit, Normal speech Eye Opening: Spontaneous Motor: Obeys Commands Verbal: Oriented GCS Score: 15 - Psych Psych: Normal mood, Other (flat affect ) PD ED PE EXPANDED - HEENT HEENT Visual: 1 - tenderness (broken with inflamation at the gingival margin) Results - Vitals Vitals: Vital Signs - 24 hr 12/04/18 19:51 Temperature 36.0 C L Heart Rate 100 Respiratory 19 Rate Blood Pressure 155/88 H O2 Saturation 100 Oxygen O2 Source Room air PD MEDICAL DECISION MAKING - ED course Complexity details: reviewed old records, considered differential, d/w patient ED course: 33-year-old male with multiple carious teeth has a broken tooth with inflammation at the gingival margin. The area next to the gingival margin is covered with It and the patient is administered amoxicillin and we will place him on a course with a limited amount of pain medication. Departure - Departure Disposition: 01 Home, Self Care Clinical Impression: Pain due to dental caries Condition: Stable Instructions: ED Tooth Pain Follow-Up: Pramod Martines MD [Primary Care Provider] - Prescriptions: Amoxicillin 875 mg PO BID #14 tablet Hydrocodone/Acetaminophen [Hydrocodon-Acetaminophen 5-325] 1 - 2 each PO Q6H PRN #14 tablet PRN Reason: pain
[2018-12-04 21:20] VITALS: BP 154/86
[2018-12-04] MEDS ORDERED: AMOXICILLIN 250 MG Prepack 6 PO SCH (22:00)
== END 2018-12-04 21:19 | disposition home or self-care (01) ==
LOC: ED 19:45
DX: K02.9 Dental caries, unspecified (principal); F17.200 Nicotine dependence, unspecified, uncomplicated
CPT/HCPCS: 99283; 99284